=== PATIENT | male | born 1995 | race Caucasian/White ===

== ENCOUNTER 2020-08-25 21:42 | Emergency (ER) | payer OTHER ==
[2020-08-25 21:55] VITALS: TEMP 98.3
[2020-08-25] MEDS ORDERED: diazePAM 5 MG TAB PO STA (22:27)
[2020-08-25] MEDS ORDERED: cloNIDine 0.3 MG/24HR PATCH TRANSDERM STA (22:27)
--- NOTE | 2020-08-25 22:28 | ED ---
Recheck HPI - General Chief Complaint: Recheck/Abnormal Lab/Rx Stated Complaint: High Blood Pressure Time Seen by Provider: 08/25/20 22:26 Source: patient, RN notes reviewed, old records reviewed Mode of arrival: ambulatory Limitations: no limitations - History of Present Illness Initial Comments: This is a 25-year-old male DF for evaluation. Patient comes in for elevated blood pressure. Patient has had elevated blood pressure for unknown amount of time. Patient currently at [place] for alcohol withdrawal states she's been drinking daily for about a year. Patient unsure if he does go through any specific signs and symptoms of alcohol withdrawal symptoms otherwise feels well baby little anxious. No chest pain no headache no shortness of breath no abdominal pain MD Complaint: abnormal lab (Elevated blood pressure) -: unknown Returns Today for: other (Blood pressure elevation) Symptoms Since Prior Visit: no new symptoms Context: planned re-check Associated Symptoms: none Treatments Prior to Arrival: other (Patient given blood pressure medication) - Related Data Home Medications Medication Instructions Recorded Confirmed Acetaminophen [Tylenol 8 Hour] 650 mg PO Q4H PRN 08/25/20 08/25/20 Calcium/Magnesium/Zinc 2 tab PO TID PRN 08/25/20 08/25/20 [Ezhmbup-Womijkehr-Zrmf Tablet] Cyproheptadine [Cyproheptadine HCl] 4 mg PO Q4H PRN 08/25/20 08/25/20 Ibuprofen [Motrin] 600 mg PO Q6H PRN 08/25/20 08/25/20 LORazepam [Ativan] 1 - 2 mg PO Q4H 08/25/20 08/25/20 Multivitamins, Thera [Multivitamin 1 tab PO DAILY@0608/25/20 08/25/20 (formulary)] Thiamine HCl [Vitamin B-1] 100 mg PO DAILY@0600 08/25/20 08/25/20 Tigan 200mg Inject 200 mg IM Q6H PRN 08/25/20 08/25/20 Trimethobenzamide HCl [Tigan] 300 mg PO Q6H PRN 08/25/20 08/25/20 Zofran 2mg/Ml Dilution 4 mg IM Q6H PRN 08/25/20 08/25/20 cloNIDine HCL [Catapres] 0.1 - 0.3 mg PO Q4H PRN 08/25/20 08/25/20 ondansetron HCL [Zofran] 8 mg PO Q6H PRN 08/25/20 08/25/20 traZODone HCL [Desyrel] 50 - 150 mg PO HS PRN 08/25/20 08/25/20 Allergies Allergy/AdvReac Type Severity Reaction Status Date / Time No Known Allergies Allergy Verified 08/25/20 22:29 Review of Systems ROS Statement: Those systems with pertinent positive or pertinent negative responses have been documented in the HPI. ROS Other: All systems not noted in ROS Statement are negative. Past Medical History Past Medical History: No Reported History History of Any Multi-Drug Resistant Organisms: None Reported Past Surgical History: No Surgical Hx Reported Past Psychological History: No Psychological Hx Reported Smoking Status: Current every day smoker Past Alcohol Use History: Abuse, Daily, Heavy Past Drug Use History: Marijuana General Exam Limitations: no limitations General appearance: anxious Head exam: Present: atraumatic, normocephalic, normal inspection Eye exam: Present: normal appearance, PERRL, EOMI. Absent: scleral icterus, conjunctival injection, periorbital swelling ENT exam: Present: normal exam, mucous membranes moist Neck exam: Present: normal inspection. Absent: tenderness, meningismus, lymphadenopathy Respiratory exam: Present: normal lung sounds bilaterally. Absent: respiratory distress, wheezes, rales, rhonchi, stridor Cardiovascular Exam: Present: regular rate, normal rhythm, normal heart sounds. Absent: systolic murmur, diastolic murmur, rubs, gallop, clicks GI/Abdominal exam: Present: soft, normal bowel sounds. Absent: distended, tenderness, guarding, rebound, rigid Extremities exam: Present: normal inspection, full ROM, normal capillary refill. Absent: tenderness, pedal edema, joint swelling, calf tenderness Back exam: Present: normal inspection Neurological exam: Present: alert, oriented X3, CN II-XII intact Psychiatric exam: Present: normal affect, normal mood Skin exam: Present: warm, dry, intact, normal color. Absent: rash Course Vital Signs 08/25/20 08/25/20 21:50 22:56 Temperature 98.3 F Pulse Rate 72 77 Respiratory 20 18 Rate Blood Pressure 178/98 175/128 O2 Sat by Pulse 97 98 Oximetry - Reevaluation(s) Reevaluation #1: 08/25/20 23:26 Records reviewed Reevaluation #2: 08/25/20 23:26 Spoke with patient at length regarding findings Reevaluation #3: 08/25/20 23:26 Patient's blood pressure has improved, no distress Medical Decision Making - Medical Decision Making 25 male DF for evaluation regarding elevated blood pressure. Patient given symptom management blood pressure control as well as to continue outpatient alcohol withdrawal treatment. Patient can be discharged Disposition Clinical Impression: Hypertension, Alcohol withdrawal Disposition: HOME SELF-CARE Condition: Good Instructions (If sedation given, give patient instructions): Hypertension (ED), Alcohol Withdrawal (ED) Is patient prescribed a controlled substance at d/c from ED?: No Referrals: None,Stated [Primary Care Provider] - 1-2 days
[2020-08-25] MEDS: ONDANSETRON ODT 4 MG TAB PO STA ×2 (22:50→22:52)
[2020-08-25 22:57] VITALS: RESP 18
[2020-08-25 23:29] VITALS: BP 116/110; PULSE 78
== END 2020-08-25 23:30 | disposition home or self-care (01) ==
LOC: EC 21:42
DX: I10 Essential (primary) hypertension (principal); F10.239 Alcohol dependence with withdrawal, unspecified; F17.200 Nicotine dependence, unspecified, uncomplicated; F12.90 Cannabis use, unspecified, uncomplicated; Z79.899 Other long term (current) drug therapy; Z79.1 Long term (current) use of non-steroidal anti-inflammatories (NSAID); Y90.9 Presence of alcohol in blood, level not specified
CPT/HCPCS: 99284